=== PATIENT | female | born 1940 | race Caucasian/White ===

== ENCOUNTER 2024-09-04 13:09 | Outpatient (CLI) | payer MEDICARE, SELFPAY ==
--- NOTE | 2024-09-04 13:46 | ECG_ITS ---
APPROVED REPORT Exam: Resting ECG HR:72 bpm ECG Measurements Heart Rate 72 AXES QRSd 122 QRS -45 QT 433 T 67 QTc 457 Conclusion First Degree AV block LEFT AXIS DEVIATION [QRS AXIS < -30] LEFT BUNDLE BRANCH BLOCK [120+ ms QRS DURATION, 80+ ms Q/S IN V1/V2, 85+ ms R IN I/aVL/V5/V6] ABNORMAL ECG UNCONFIRMED REPORT Electronically signed by : Vincenzo Ziegler MD 09/06/2024 09:35:21
[2024-09-04 14:04] VITALS: BMI 16.8
[2024-09-04 14:26] LABS: Basophils # 0.1 K/mm3 (0-0.2); Basophils % 1.4 % (0.1-2.0); Chloride 100 mmol/L (98-107); Eosinophils # 0.4 K/mm3 (0.0-0.4); Eosinophils % 4.5 % (0.1-12.0); Hematocrit 40.6 % (37.0-47.0); Hemoglobin 13.3 g/dL (12.2-16.2); Lymphocytes # 1.9 K/mm3 (0.7-4.5); Lymphocytes % 24.6 % (10-50); Mean Corpuscular HGB Conc 32.8 g/dL (31.8-35.4); Mean Corpuscular Hemoglobin 33.4 pg (27.0-31.2); Mean Corpuscular Volume 101.8 fl (81-99); Mean Platelet Volume 8.4 fl (7.4-10.4); Monocytes # 0.5 K/mm3 (0.1-1.0); Monocytes % 5.9 % (1.7-9.3); Neutrophils % 63.5 % (37.0-80.0); Platelet Count 221 K/mm3 (142-424); Potassium 4.2 mmoL/L (3.5-5.1); Red Blood Count 3.99 M/mm3 (4.20-5.40); Red Cell Distribution Width 13.8 % (11.5-17.5); Sodium 139 mmol/L (136-145); White Blood Count 7.8 K/mm3 (4.8-10.8)
[2024-09-04 14:29] LABS: Anion Gap 11.2 mEq/L (5-15); Blood Urea Nitrogen 54 mg/dl (7-17); Calcium 10.9 mg/dl (8.4-10.2); Carbon Dioxide 32 mmol/L (22.0-30.0); Creatinine Clearance Estimated 19 mL/min (50-200); Estimated Glomerular Filt Rate 33 ml/min (>60); GFR (African American) 40 ML/MIN (>60); Glucose 101 mg/dl (74-100)
== END 2024-09-04 23:59 | disposition home or self-care (01) ==
LOC: PREOP 13:11
PROVIDERS: Nurse Anesthetist, Certified Registered; PCP Internal Medicine; Visit Provider Obstetrics & Gynecology
DX: N90.89 Other specified noninflammatory disorders of vulva and perineum (principal); I44.0 Atrioventricular block, first degree; I44.7 Left bundle-branch block, unspecified; R94.31 Abnormal electrocardiogram [ECG] [EKG]
CPT/HCPCS: 80048; 85025; 93005

== ENCOUNTER 2024-09-17 05:58 | Day surgery (SDC) | payer MEDICARE, SELFPAY ==
[2024-09-04 13:31] VITALS: BMI 16.8
[2024-09-17 06:34] VITALS: BP 124/37; PULSE 60; RESP 18; TEMP 36.2; O2SAT 98
[2024-09-17] MEDS: LACTATED RINGERS 1000ML 1,000 ML 25 ML IV (06:54)
[2024-09-17] MEDS: ACETAMINOPHEN 500MG TAB 1000 MG PO (06:55)
--- NOTE | 2024-09-17 07:16 | P.PNANES_ITS ---
[facility] Disclaimer: The information contained in this section may have been updated after the patient was seen, as this information can be updated by other users. Medical History Dementia HLD (hyperlipidemia) CAD (coronary artery disease) HTN (hypertension) Verrucous keratosis Lesion of vulva Broken shoulder Stroke Surgical History History of intravascular stent placement H/O angioplasty Family History Other Family history of dementia Family history of heart disease Social History Smoking Status: Never smoker alcohol intake: current substance use type: denies use current occupational status: retired Travel in the last 8 weeks: None [facility] Anesthesia Checklist Patient Identification Patient Identification: Arm Band and Verbal (Name & ) Structural Data Admitted From: Home Planned Operative Procedure/s: LEEP Consent for Planned Operative Procedure(s) Verified: Yes Verified Documents: Surgical Consent and History and Physical NPO Status Verified Time NPO: 00:00 Additional verifications Anesthesia Reactions: No Hx Blood Transfusions: No Blood Transfusion Reaction: No Airway Assessment Mallampati Score:: Class II C-Spine Mobility Assessed: Yes TMJ Mobility Assessed: Yes Dentition: Good Dentition Neurological Assessment Level of Consciousness: Awake Hx Seizures: No Numbness or tingling in extremities: No Anesthesia Plan Anesthesia Risk discussed: Yes Anesthesia Plan: Verified ASA Class: III Anesthesia Type: MAC
[2024-09-17] MEDS: LIDOCAINE 5% OINTMENT 35GM TUBE 35 GM TP (07:51)
[2024-09-17] MEDS: BUPIVACAINE 0.5% W/EPI 1:200,000 30ML VIAL 30 ML IJ (07:51)
[2024-09-17 08:15] VITALS: BP 94/42; PULSE 53; RESP 18; TEMP 36.6; O2SAT 93
[2024-09-17 08:30] VITALS: BP 92/54; PULSE 52; RESP 18; O2SAT 95
--- NOTE | 2024-09-17 08:32 | SUR.OPER ---
0748- Upon [place] pushing propofol, we noted that patient was not falling asleep as normal. oscar Ramsay noticed that the right AC Iv was infiltrated. Iv d/c'd immediately. IV intact. Cold compresses applied to the site. Natasha in pharmacy contacted to figure out protocol and steps to take for propofol infiltration being in the arm. oscar Kaur stated to apply cold compresses, place a general surgery consult, and to observe the patient. General surgery consult placed and notifed by oscar Ramsay.
--- NOTE | 2024-09-17 08:37 | EXP.OP.NOTE ---
Date of procedure: 09/17/24 Pre-op Diagnosis:: 1. Vulvar verrucous keratosis Post-op Diagnosis:: 1. Vulvar verrucous keratosi Procedure performed:: Excision of vulvar verrucous keratosis Surgeon:: Rita Wallace DO Morning Show Producer(s):: N/a ELEVATOR CONSTRUCTOR HELPER:: Sobia Dan Anesthesia: MAC Estimated blood loss (mL): 5 Clinical Note:: Mrs Gabby Nolasco is a very pleasant 83 yo who presents to [facility] for scheduled procedure. She reports painful vulvar lesion that is extending into her vagina. She states she first noticed a lesion on right labia March-April 2024. A 5 mm punch biopsy of large lesion on right labia performed on 06/17/24. Pathology demonstrated verrucous keratosis. She underwent 3 rounds of cryotherapy with small improvement in small lesions. No change in large right lesion. Operative findings:: 1. 3 cm x 1 cm cauliflower like pink raised lesion between right labia minora and majora, a few small satellite spots on upper right labia and left labia minora, a few similar spots on perineum and introitus extending onto posterior vaginal wall Operative note:: Risks, benefits and alternatives were discussed with the patient. Risks include but are not limited to bleeding, infection, and VTE. Patient voiced understanding and agreed to proceed. She was wheeled back to the operating room and placed under MAC without difficulty. She was placed in dorsal lithotomy position and prepped and draped in the normal sterile fashion. Small size loop was selected to excise vulvar lesions. Base of large lesion was cauterized with Bovi cautery. Hemostasis was noted. A mixture of silvadene cream and lidocaine ointment was applied to base of excisions. Patient was awaken from anesthesia without difficulty. She was transported to recovery room in stable condition. Patient will be discharged home when awake and ambulating. She was also given instructions to follow-up in the office in 2 weeks. Condition: stable Disposition: same day Specimens:: 1. Vulvar lesions, verrucous keratosis Complications:: None
[2024-09-17 08:45] VITALS: BP 116/54; PULSE 62; RESP 18; O2SAT 97
--- NOTE | 2024-09-17 08:46 | EXP.HP ---
History of Present Illness *Admission Date: 09/17/24 *Reason for visit:: Scheduled surgical procedure *History of present illness: Mrs Gabby Nolasco is a very pleasant 83 yo who presents to [facility] for scheduled procedure. She reports painful vulvar lesion that is extending into her vagina. She states she first noticed a lesion on right labia March-April 2024. A 5 mm punch biopsy of large lesion on right labia performed on 06/17/24. Pathology demonstrated verrucous keratosis. She underwent 3 rounds of cryotherapy with small improvement in small lesions. No change in large right lesion. [facility] Disclaimer: The information contained in this section may have been updated after the patient was seen, as this information can be updated by other users. Medical History Dementia HLD (hyperlipidemia) CAD (coronary artery disease) HTN (hypertension) Verrucous keratosis Lesion of vulva Broken shoulder Stroke Surgical History History of intravascular stent placement H/O angioplasty Family History Other Family history of dementia Family history of heart disease Social History (Updated 09/17/24 @ 07:17 by Abbie Hand CRNA) Smoking Status: Never smoker alcohol intake: current substance use type: denies use current occupational status: retired Travel in the last 8 weeks: None Other Medical History Have you received the Pneumonia Vaccine: No Review of Systems Review of Systems Review of systems:: pertinent systems reviewed and negative unless documented below Meds Home Medications and Allergies Home Medications ?Medication ?Instructions ?Recorded ?Confirmed ?Type amlodipine 10 mg tablet 10 mg PO DAILY 06/17/24 09/17/24 History atorvastatin 80 mg tablet 80 mg PO DAILY 06/17/24 09/17/24 History clopidogrel 75 mg tablet (Plavix) 75 mg PO DAILY 06/17/24 09/17/24 History ferrous sulfate 325 mg (65 mg 325 mg PO DAILY 06/17/24 09/17/24 History iron) tablet (FeroSul) lisinopril 20 2 tab PO BID 06/17/24 09/17/24 History mg-hydrochlorothiazide 12.5 mg tablet memantine 10 mg tablet 5 mg PO BID 06/17/24 09/17/24 History methenamine hippurate 1 gram tablet 1 g PO DAILY 06/17/24 09/17/24 History pilocarpine HCl 5 mg tablet 5 mg PO DAILY 06/17/24 09/17/24 History clonidine HCl 0.1 mg tablet 0.1 mg PO DAILY 07/24/24 09/17/24 History Saccharomyces boulardii 250 mg 250 mg PO BID 09/05/24 09/17/24 History capsule (Florastor) allopurinol 100 mg tablet 100 mg PO DAILY 09/05/24 09/17/24 History cholecalciferol (vitamin D3) 50 50 mcg PO DAILY 09/05/24 09/17/24 History mcg (2,000 unit) capsule donepezil 10 mg tablet 10 mg PO HS 09/05/24 09/17/24 History halobetasol propionate 0.05 % 1 applic topical BID 09/05/24 09/17/24 History topical cream quetiapine 25 mg tablet 25 mg PO HS 09/05/24 09/17/24 History hydrocodone 5 mg-acetaminophen 325 1 tab PO Q6H PRN pain #12 tabs 09/17/24 Rx mg tablet New Prescriptions to Start Prescriptions: hydrocodone-acetaminophen Rita Wallace Allergies Allergy/AdvReac Type Severity Reaction Status Date / Time No Known Allergies Allergy Verified 09/17/24 06:28 Exam Data for Last 24 hours Vital signs and Labs for Last 24 Hours: Temp Pulse Resp BP Pulse Ox O2 Del Method 97.1 F L 60 18 124/37 L 98 Room Air 09/17/24 06:34 09/17/24 06:34 09/17/24 06:34 09/17/24 06:34 09/17/24 06:34 09/17/24 06:34 Constitutional Constitutional: no acute distress, thin and cooperative *Routine HEENT Exam Head: Present normocephalic and atraumatic Eye: Absent conjunctivae pink ENT: Present mucous membranes moist *Routine Neck Exam Neck: Present full ROM *Routine Respiratory Exam Respiratory: Present CTA bilaterally and normal respiratory effort *Routine Cardiovascular Exam Cardiovascular: Present RRR *Routine Abdominal Exam Abdominal: Present soft; Absent tenderness or distended *Routine Rectal Exam Rectal:: deferred *Routine Genitalia Exam Genitalia:: other Comment:: 3 cm x 1 cm cauliflower like pink raised lesion between right labia minora and majora, a few small satellite spots on upper right labia and left labia minora, a few similar spots on perineum and introitus extending onto posterior vaginal wall *Routine Extremities Exam Extremities: Present full ROM; Absent edema or calf tenderness *Routine Neurological Exam Neurological: Present alert, moving all extremities and normal speech Routine Psychiatric Exam Psychiatric: Present normal affect and cooperative Assessment and Plan *Assessment and plan (1) Verrucous keratosis: Status: Acute Category: Medical Code(s): L82.1 - Other seborrheic keratosis (2) Lesion of vulva: Status: Acute Category: Medical Code(s): N90.89 - Other specified noninflammatory disorders of vulva and perineum Plan Admit to [facility] for scheduled procedure Reviewed risks, benefits, alternatives, expectations and possible complications of surgery. All questions addressed and answered. She voiced understanding of risks and possible complications. Consent form signed Proceed with scheduled LEEP of vulvar lesions as scheduled
--- NOTE | 2024-09-17 11:13 | SUR.PHASEII ---
Patient was brought to Post-op and her IV in her right ac infiltrated during the procedure per Sobia Hand CRNA. A consult was placed by Sobia Hand CRNA for General Surgery Dr Jackson at bedside, no new orders received. Patient and her was advised to rest and elevated right arm for 48 hours. Patient stated my right arm doesn't hurt at time of discharge her right arm was slightly swollen and slightly red.
== END 2024-09-17 09:15 | disposition home or self-care (01) ==
PROVIDERS: PCP Internal Medicine; Visit Provider Obstetrics & Gynecology
PROC: (CPT 56501; principal; 2024-09-17 07:30)
DX: L82.1 Other seborrheic keratosis (principal); N90.89 Other specified noninflammatory disorders of vulva and perineum
CPT/HCPCS: 56501; J7120

== ENCOUNTER 2025-04-04 09:26 | Outpatient (CLI) | payer MEDICARE, SELFPAY ==
--- NOTE | 2025-04-04 09:32 | CA_ITS ---
APPROVED REPORT EXAM: Comprehensive 2D, Doppler, and color-flow Echocardiogram Chucking And Sawing Machine Operator: Babs Smith RT(R) Ht: 5 ft 3 in Wt: 99lbs BSA: 1.43 BP: 129/58 mmHg Indications: Abn EKG, HTN, hyperlipidemia, fatigue, severe MAC seen on echo at outside facility, dementia, CAD, hx CVA 2D Dimensions LA Volume 43.30 mL LA Volume Index 30.07 mL/m2 (M/F) 16-34 GL Strain -16.2 % M-Mode Dimensions RVDd 1.43 cm (0.9-2.6) LA Diam 4.04 cm (1.9-4.0) LVDd 4.30 cm (3.5-5.7) LVDs 3.07 cm (3.5-5.7) IVSd 0.40 cm (0.6-1.1) PWd 0.40 cm (0.6-1.1) EF (Teich) 55.50% FS 28.60% EDV (Teich) 83.10 mL ESV (Teich) 37.00 mL LV Diastology E Decel Time 187 (160-240 msec) E/A Ratio 1.1 Aortic Valve NELDA Index 1.37 cm2/m2 AoV Peak Charanjit. 127.0 (50-130 cm/s) AI PHT 634.00 ms AO Peak GR. 6.50 mmHg AO Mean GR. 3.20 (<5 mmHg) AO VTI 32.2 (18-25 cm) NELDA (VTI) 2.01 (2.5-4.5 cm2) Mitral Valve MV E Max Charanjit. 129.0 (40-130 cm/s) MV A Velocity 118.0 (40-130 cm/s) E/A Ratio 1.09 MV PHT 55.0 ms Tricuspid Valve TR P. Velocity 314.00 cm/s Left Ventricle The left ventricle is normal size. The left ventricular systolic function is normal. The left ventricular ejection fraction is within the normal range. There is increased overall thickness. There is normal LV segmental wall motion. Diastolic function is indeterminate in the setting of severe MAC. LVEF is 55%. Right Ventricle The right ventricle is normal size. The right ventricular systolic function is normal. Atria Left atrium is moderately dilated. Right atrium is moderately dilated. There is no Doppler evidence of interatrial shunt. Aortic Valve Aortic valve is mildly thickened. There is no aortic valvular stenosis. Mild aortic regurgitation. Mitral Valve Severe mitral annular calcification is present. The mitral valve leaflets are moderately thickened. No evidence of mitral valve stenosis. Mean MV gradient 4 mmHg (HR 58 bpm). Mild mitral regurgitation. Tricuspid Valve Tricuspid valve is grossly normal in structure and function. Mild tricuspid regurgitation. RVSP 35-40 mmHg. Pulmonic Valve The pulmonary valve is normal in structure. Trace pulmonic regurgitation. Great Vessels The aortic root is normal in size. IVC is normal in size and collapses >50% with inspiration. Pericardium There is no pericardial effusion. Other Information Study Quality: Fair Conclusion Normal biventricular systolic function. Severe MAC. Mild MR. No MS. Mild AI, mild TR. Elevated RVSP 35-40 mmHg. Electronically signed by : Kadie Briscoe MD 04/13/2025 20:59:55
--- NOTE | 2025-04-04 10:21 | CT_ITS ---
FINAL REPORT TECHNIQUE: Pre-and postcontrast images of the abdomen and pelvis were performed by computed tomography. Extensive 3-D reconstruction images were performed. A CTA was performed. This study was performed with techniques to keep radiation doses as low as reasonably achievable (ALARA). Individualized dose reduction techniques using automated exposure control or adjustment of mA and/or kV according to the patient's size were employed. CLINICAL HISTORY: AAA repair COMPARISON: None FINDINGS: ABDOMEN AND PELVIS: There is moderate right renal atrophy, that may be secondary in part to chronic ischemia. The gallbladder has been surgically removed. The solid organs are otherwise unremarkable. The bowel in the upper abdomen is unremarkable. In the pelvis, moderate fecal impaction is noted. The bladder is decompressed. 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 The galena aorta measures 50 x 47 mm on coronal and sagittal reconstructions. No gross endoleak is identified, although a protocol to evaluate for possible endoleak was not used in this examination. There is narrowing of the right renal artery stent present. The left renal artery and superior mesenteric artery stents are unremarkable in appearance. 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 The right common iliac is unremarkable. IMPRESSION: 1. 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 No prior films are currently available for comparison purposes, but if this represents a growth of the aneurysm, a study may be repeated using an endoleak protocol for further evaluation. 2. 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 Reviewed, Interpreted and Dictated by Naty Fay MD Transcribed by Lizabeth Domingo Authenticated and [facility]
[2025-04-04 10:39] LABS: Blood Urea Nitrogen 28 mg/dl (7-17); Estimated Glomerular Filt Rate 43 ml/min (>60); GFR (African American) 52 ML/MIN (>60)
[2025-04-04] MEDS: SODIUM CHLORIDE 0.9% 10ML SYR (RAD ONLY) 10 ML IV (14:18)
[2025-04-04] MEDS: 0.9 % SODIUM CHLORIDE 50 ML VIAL IV (14:18)
[2025-04-04] MEDS: IOPAMIDOL-370 (76%);100ML BOTTLE 100 ML IV (14:18)
== END 2025-04-04 23:59 | disposition home or self-care (01) ==
LOC: RT 09:27
PROVIDERS: PCP Internal Medicine; Visit Provider Physician Assistant
DX: I08.3 Combined rheumatic disorders of mitral, aortic and tricuspid valves (principal); I71.42 Juxtarenal abdominal aortic aneurysm, without rupture; I77.1 Stricture of artery; E78.5 Hyperlipidemia, unspecified; I25.10 Atherosclerotic heart disease of native coronary artery without angina pectoris; F03.90 Unspecified dementia, unspecified severity, without behavioral disturbance, psychotic disturbance, mood disturbance, and anxiety; I10 Essential (primary) hypertension; R94.31 Abnormal electrocardiogram [ECG] [EKG]; Z98.890 Other specified postprocedural states; Z86.79 Personal history of other diseases of the circulatory system; Z86.73 Personal history of transient ischemic attack (TIA), and cerebral infarction without residual deficits
CPT/HCPCS: 36415; 74174; 82565; 84520; 93306; Q9967